=== PATIENT | female | born 1935 | race Caucasian/White ===

== ENCOUNTER 2020-05-31 07:54 | Emergency (ER) | payer MEDICARE, OTHER ==
[~2020-05-31] VITALS: Ht 165.1 cm; Wt 81.4 kg
--- NOTE | 2020-05-31 08:16 | NUR ---
PT TOOK ALL MEDICATION 45 MIN BEFORE ARRIVAL INCLUDING HTN MEDICATION AND XARELTO.
[2020-05-31] MEDS ORDERED: normal saline 1000ml 1,000 ML IV ONE (08:25)
[2020-05-31] MEDS ORDERED: acetaminophen 325mg tablet PO ONE (08:25)
[2020-05-31 09:05] LABS: BASOPHILS # (AUTO) 0.1 X10'3 (0-0.2); BASOPHILS % (AUTO) 0.6 % (0-1); EOSINOPHILS # (AUTO) 0.2 X10'3 (0-0.9); EOSINOPHILS % (AUTO) 1.7 % (0-6); HEMATOCRIT 30.9 % (35.0-45.0); HEMOGLOBIN 10.5 g/dl (12.0-16.0); LYMPHOCYTES # (AUTO) 1.3 X10'3 (1.1-4.8); LYMPHOCYTES % (AUTO) 13.9 % (21-51); MEAN CORPUSCULAR HGB CONC 33.9 g/dL (33.0-36.5); MEAN CORPUSCULAR VOLUME 100.5 FL (78-98); MEAN PLATELET VOLUME 7.6 FL (7.4-10.4); MONOCYTES # (AUTO) 0.8 X10'3 (0-0.9); MONOCYTES % (AUTO) 8.5 % (2-12); NEUTROPHILS # (AUTO) 6.8 X10'3 (1.8-7.7); NEUTROPHILS % (AUTO) 75.3 % (42-75); PLATELET COUNT 198 X10'3 (140-440); RED BLOOD COUNT 3.08 X10'6 (4.20-5.60); RED CELL DISTRIBUTION WIDTH 12.4 % (11.5-14.5); WHITE BLOOD COUNT 9.1 X10'3 (4.5-11.0)
[2020-05-31 09:21] LABS: CLARITY,URINE CLOUDY (Clear); COLOR,URINE YELLOW (Yellow); GLUCOSE, URINE NEGATIVE (Neg); KETONES,URINE TRACE mg/dl (Neg); LEUKOCYTE ESTERASE ,URINE NEGATIVE (Neg); NITRITES, URINE NEGATIVE (Neg); OCCULT BLOOD,URINE NEGATIVE (Neg); PROTEIN,URINE NEGATIVE (Neg); UROBILINOGEN,URINE 0.2 E.U/dL (0.2-1.0)
[2020-05-31 09:22] LABS: UA COLLECTION TYPE CLN CATCH MIDSTREAM
[2020-05-31 09:29] LABS: ALANINE AMINOTRANSFERASE 21 U/L (12-78); ALBUMIN 3.4 G/DL (3.4-5.0); ALBUMIN/GLOBULIN RATIO 1.1 (1.1-1.5); ALKALINE PHOSPHATASE 67 IU/L (46-116); ANION GAP 8 (8-16); ASPARTATE AMINO TRANSFERASE 15 U/L (10-37); BILIRUBIN,TOTAL 0.5 MG/DL (0.1-1.0); BLOOD UREA NITROGEN 25 MG/DL (7-18); BUN/CREATININE RATIO 17.1 (6.6-38.0); CALCIUM 8.8 MG/DL (8.5-10.1); CHLORIDE 104 MMOL/L (99-107); CREATINE KINASE 86 U/L (26-192); CREATININE 1.46 MG/DL (0.40-0.90); GLUCOSE 134 MG/DL (70-104); POTASSIUM 4.3 MMOL/L (3.5-5.1); SODIUM 137 MMOL/L (135-145); TOTAL CARBON DIOXIDE 24.7 MMOL/L (24-32); TOTAL PROTEIN 6.4 G/DL (6.4-8.2); TROPONIN I < 0.04 NG/ML (0.0-0.05); eGFR 34 ML/MIN
[2020-05-31 09:31] LABS: SQUAMOUS EPITHELIAL CELL,UR MANY /LPF (FEW)
[2020-05-31 09:32] LABS: CELLULAR CAST 0-4 /LPF (NEGATIVE)
--- NOTE | 2020-05-31 09:32 | NUR ---
PATIENT TO CT. Addendum: 05/31/20 at 0934 by KRISTI INCORRECT ENTRY.
[2020-05-31 09:33] LABS: BACTERIA,URINE FEW /HPF (Neg); RBC,URINE 0-2 /HPF (0-2); TRANSITIONAL EPI CELLS,URINE MODERATE /HPF
[2020-05-31] MEDS ORDERED: BENA20TA82 PO (09:51)
[2020-05-31] MEDS ORDERED: RIVA20TA PO (09:51)
[2020-05-31] MEDS ORDERED: AMIO200T62 PO (09:51)
[2020-05-31] MEDS ORDERED: CARV-50 PO (09:51)
[2020-05-31] MEDS ORDERED: SIMV-42 PO (09:51)
[2020-05-31] MEDS ORDERED: TRAZ150T78 PO (09:51)
[2020-05-31] MEDS ORDERED: TRAM50TA2 PO (09:51)
[2020-05-31] MEDS ORDERED: FURO-150 PO (09:51)
[2020-05-31] MEDS ORDERED: POTA8TAB3 PO (09:51)
[2020-05-31 10:31] VITALS: BP 157/75
[2020-05-31] MEDS ORDERED: ACET-812 PO (11:12)
== END 2020-05-31 11:31 | disposition home or self-care (01) ==
LOC: ER 07:54
DX: S40.022A Contusion of left upper arm, initial encounter (principal); R07.81 Pleurodynia; I10 Essential (primary) hypertension; Z79.899 Other long term (current) drug therapy; W01.198A Fall on same level from slipping, tripping and stumbling with subsequent striking against other object, initial encounter; Y93.89 Activity, other specified; Y92.091 Bathroom in other non-institutional residence as the place of occurrence of the external cause; Y99.9 Unspecified external cause status
CPT/HCPCS: 36415; 71045; 73200; 80053; 81001; 82550; 84484; 85025; 85610; 93005; 99285; J7030

== ENCOUNTER 2020-08-31 00:39 | Inpatient (IN) | payer MEDICARE, OTHER ==
[~2020-08-31] VITALS: Ht 165.1 cm; Wt 81.0 kg
[~2020-08-31 00:39] MED LIST: AMIO200T62 PO; BENA20TA82 PO; CARV-50 PO; FURO-150 PO; POTA8TAB3 PO; RIVA20TA PO; SIMV-42 PO; TRAM50TA2 PO; TRAZ150T78 PO
[2020-08-31] MEDS ORDERED: normal saline 1000ML IV soln IVB ONE (01:05)
[2020-08-31 01:13] LABS: BASOPHILS # (AUTO) 0.1 X10'3 (0-0.2); BASOPHILS % (AUTO) 0.8 % (0-1); EOSINOPHILS # (AUTO) 0.1 X10'3 (0-0.9); EOSINOPHILS % (AUTO) 0.9 % (0-6); HEMATOCRIT 41.4 % (35.0-45.0); HEMOGLOBIN 13.8 g/dl (12.0-16.0); LYMPHOCYTES # (AUTO) 2.6 X10'3 (1.1-4.8); LYMPHOCYTES % (AUTO) 22.6 % (21-51); MEAN CORPUSCULAR HEMOGLOBIN 33.3 PG (27.0-31.0); MEAN CORPUSCULAR HGB CONC 33.4 g/dL (33.0-36.5); MEAN CORPUSCULAR VOLUME 99.8 FL (78-98); MEAN PLATELET VOLUME 7.6 FL (7.4-10.4); MONOCYTES # (AUTO) 0.8 X10'3 (0-0.9); MONOCYTES % (AUTO) 6.9 % (2-12); NEUTROPHILS % (AUTO) 68.8 % (42-75); PLATELET COUNT 326 X10'3 (140-440); RED BLOOD COUNT 4.15 X10'6 (4.20-5.60); RED CELL DISTRIBUTION WIDTH 12.7 % (11.5-14.5); WHITE BLOOD COUNT 11.6 X10'3 (4.5-11.0)
[2020-08-31 01:24] LABS: ALANINE AMINOTRANSFERASE 21 U/L (12-78); ALBUMIN/GLOBULIN RATIO 1.1 (1.1-1.5); ALKALINE PHOSPHATASE 87 IU/L (46-116); ANION GAP 12 (8-16); ASPARTATE AMINO TRANSFERASE 30 U/L (10-37); BILIRUBIN,TOTAL 0.7 MG/DL (0.1-1.0); BLOOD UREA NITROGEN 25 MG/DL (7-18); BUN/CREATININE RATIO 18.9 (6.6-38.0); CALCIUM 9.6 MG/DL (8.5-10.1); CHLORIDE 99 MMOL/L (99-107); CREATININE 1.32 MG/DL (0.40-0.90); GLUCOSE 153 MG/DL (70-104); SODIUM 136 MMOL/L (135-145); TOTAL CARBON DIOXIDE 24.6 MMOL/L (24-32); TOTAL PROTEIN 7.6 G/DL (6.4-8.2); eGFR 38 ML/MIN
[2020-08-31 01:47] LABS: CLARITY,URINE SLIGHTLY CLOUDY (Clear); COLOR,URINE YELLOW (Yellow); GLUCOSE, URINE NEGATIVE (Neg); KETONES,URINE TRACE mg/dl (Neg); LEUKOCYTE ESTERASE ,URINE NEGATIVE (Neg); NITRITES, URINE NEGATIVE (Neg); OCCULT BLOOD,URINE TRACE-LYSED (Neg); PROTEIN,URINE 100 mg/dl (Neg)
--- NOTE | 2020-08-31 01:48 | NUR ---
returned from ct. hr 125. piv in place, labs drawn and straight cathed. pt with no pain.
[2020-08-31 01:51] LABS: UA COLLECTION TYPE STRAIGHT CATH
[2020-08-31 01:53] LABS: BACTERIA,URINE 4+ /HPF (Neg); RBC,URINE 0-2 /HPF (0-2); SQUAMOUS EPITHELIAL CELL,UR FEW /LPF (FEW)
--- NOTE | 2020-08-31 02:07 | NUR ---
PT CONNER, DR. LOUIS NOTIFIED, WILL ORDER ANTIEMETIC
[2020-08-31] MEDS ORDERED: ondansetron/PF 4mg/2ml inj IV ONE (02:15)
[2020-08-31] MEDS ORDERED: LEVO125T PO (02:31)
[2020-08-31] MEDS ORDERED: BACL-11 PO (02:33)
[2020-08-31] MEDS ORDERED: CefTRIAXone/D5W-Rocephin 1gm 50 ML IV ONE (02:35)
--- NOTE | 2020-08-31 02:36 | NUR ---
DR. DICKINSON PAGED FOR ADMISSION. MED REC COMPLETED. PT GIVEN ZOFRAN . HR 130. DR. LOUIS REPORTS SHE WILL AWAITING DR. QUEVEDO DECISION ON HOW TO CONTROL PTS RATE. PT REPORTS D/T FEELING BAD AND SICK, SHE HAS MISSED HER MEDS FOR THE PAST 24 + HRS. PTS SON (WHO DROPPED HER OFF) JORGE QUISPEAlexandra, .
[2020-08-31] MEDS ORDERED: carvedilol 6.25mg tablet PO STA (02:38)
--- NOTE | 2020-08-31 02:40 | NUR ---
DR. DICKINSON AT BEDSIDE FOR ADMISSION.
[2020-08-31] MEDS ORDERED: acetaminophen 325mg tablet PO PRN (03:05)
[2020-08-31] MEDS ORDERED: mag hydrox/Alum hydrox/simeth 30ml oral suspension PO PRN (03:05)
[2020-08-31] MEDS ORDERED: ondansetron/PF 4mg/2ml inj IV PRN (03:05)
[2020-08-31] MEDS ORDERED: magnesium hydroxide 30ml (MOM) UD suspension PO PRN (03:05)
--- NOTE | 2020-08-31 04:17 | NUR ---
REPORT TO JUNIOR RAMIREZ RN, PCU. IPA [id number]. HR NOW 66 AND NSR. PT REPORTS SHE IS FEELING BETTER.
--- NOTE | 2020-08-31 04:50 | NUR ---
Patient was transported by gurney to the third floor from the ER. Patient was able to reposition self from ER [facility] to [facility] in room. She stated that she is normally independent with her cane but has been feeling weak lately. She was stable at time of transfer.
--- NOTE | 2020-08-31 05:25 | NUR ---
Patient has elevated blood pressure of 184/78. Called Dr. Pascual to inform. He said to give her AM Coreg early. Had to enter as a one time order to pull from the [employer].
[2020-08-31] MEDS ORDERED: carvedilol 6.25mg tablet PO ONE (05:40)
[2020-08-31 06:00] VITALS: BP 169/66
--- NOTE | 2020-08-31 06:33 | NUR ---
Problems reprioritized. Patient report given, questions answered & plan of care reviewed with Octavia RN. Patient was resting comfortably during report and no acute distress was noted.
--- NOTE | 2020-08-31 06:45 | NUR ---
Patient in room PCU 3027. I have received report from Tess and had the opportunity to ask questions and assume patient care.
[2020-08-31] MEDS: amiodarone 100mg tablet PO SCH (07:50)
[2020-08-31] MEDS: furosemide 20MG tablet PO SCH (07:52)
[2020-08-31] MEDS: levoTHYROXINE 125mcg tablet PO SCH (07:53)
[2020-08-31] MEDS: atorvastatin 10mg tablet PO SCH (07:53)
[2020-08-31] MEDS: lisinopril 20mg tablet PO SCH (07:55)
[2020-08-31] MEDS: potassium chloride 8mEq ER tablet PO SCH (07:56)
[2020-08-31] MEDS ORDERED: carvedilol 6.25mg tablet PO SCH (08:00)
[2020-08-31] MEDS ORDERED: diltiazem 5mg/ml 5ml inj. IV ONE (08:55)
[2020-08-31] MEDS: CefTRIAXone/D5W-Rocephin 1gm 50 ML IV SCH (09:25)
[2020-08-31] MEDS: normal saline 1000ml 1,000 ML IV SCH ×3 (09:25→21:18)
[2020-08-31] MEDS ORDERED: magnesium Cl slow-release 64mg tablet PO PRN (09:50)
[2020-08-31] MEDS ORDERED: magnesium 4gm in 100ml NS 100 ML IV PRN (09:50)
[2020-08-31] MEDS ORDERED: potassium Cl 20 mEq SR tablet PO PRN ×2 (09:50)
[2020-08-31] MEDS ORDERED: potassium CL 10mEq/100ml bag 100 ML IV PRN (09:50)
--- NOTE | 2020-08-31 10:15 | NUR ---
PAGER ID: [phone] MESSAGE: [id number] Ana M Sheehan Troponin is 0.08 previously was 0.04. Pt denies chest pain. Thank you. Linnette [phone]
[2020-08-31 11:00] VITALS: BP 143/91
--- NOTE | 2020-08-31 11:41 | NUR ---
Pt has converted to sinus rhythm from afib/aflutter, dr. izaguirre aware, no new orders.
[2020-08-31 15:00] VITALS: BP 148/74
--- NOTE | 2020-08-31 17:00 | NUR ---
PAGER ID: [phone] MESSAGE: [id number] Ana M Sheehan Pt converted back to Afib from sinus rhythm in the 90s-110s. Pt is asymptomatic. Do you want to give the pm scheduled coreg 25mg early? Thank you. Linnette [phone]
[2020-08-31] MEDS: rivaroxaban 20mg tablet PO SCH (17:29)
--- NOTE | 2020-08-31 17:52 | NUR ---
[facility] documentation: I have reviewed and agree with all interventions, assessments performed and documented by Linnette LAND.
--- NOTE | 2020-08-31 18:26 | NUR ---
Problems reprioritized. Patient report given, questions answered & plan of care reviewed with EMERY Antonio.
--- NOTE | 2020-08-31 18:30 | NUR ---
Patient in room PCU 3022. I have received report from BERKLEY LAND and had the opportunity to ask questions and assume patient care.
[2020-08-31 19:00] VITALS: BP 167/89
[2020-08-31] MEDS: K and/or MAG REPLACEMENT MC SCH (20:00)
[2020-08-31] MEDS: carVEDilol 12.5mg tablet PO SCH (20:55)
[2020-08-31 23:00] VITALS: BP 132/75
[2020-09-01] VITALS (7 sets, daily range): BP systolic 144–195; BP diastolic 62–98
[2020-09-01] MEDS: normal saline 1000ml 1,000 ML IV SCH ×2 (01:18→17:55)
[2020-09-01 06:03] LABS: ALANINE AMINOTRANSFERASE 16 U/L (12-78); ALBUMIN 2.9 G/DL (3.4-5.0); ALKALINE PHOSPHATASE 65 IU/L (46-116); ANION GAP 8 (8-16); ASPARTATE AMINO TRANSFERASE 14 U/L (10-37); BILIRUBIN,TOTAL 0.5 MG/DL (0.1-1.0); BLOOD UREA NITROGEN 18 MG/DL (7-18); BUN/CREATININE RATIO 15.1 (6.6-38.0); CALCIUM 8.5 MG/DL (8.5-10.1); CHLORIDE 101 MMOL/L (99-107); CREATININE 1.19 MG/DL (0.40-0.90); GLUCOSE 101 MG/DL (70-104); MAGNESIUM 1.7 MG/DL (1.5-2.4); PHOSPHORUS 3.1 MG/DL (2.3-4.5); POTASSIUM 3.7 MMOL/L (3.5-5.1); SODIUM 134 MMOL/L (135-145); TOTAL CARBON DIOXIDE 25.1 MMOL/L (24-32); TOTAL PROTEIN 5.8 G/DL (6.4-8.2); eGFR 43 ML/MIN
[2020-09-01 06:04] LABS: BASOPHILS # (AUTO) 0.1 X10'3 (0-0.2); BASOPHILS % (AUTO) 0.6 % (0-1); EOSINOPHILS # (AUTO) 0.2 X10'3 (0-0.9); EOSINOPHILS % (AUTO) 2.2 % (0-6); HEMATOCRIT 33.7 % (35.0-45.0); HEMOGLOBIN 11.4 g/dl (12.0-16.0); LYMPHOCYTES # (AUTO) 1.9 X10'3 (1.1-4.8); LYMPHOCYTES % (AUTO) 20.5 % (21-51); MEAN CORPUSCULAR HEMOGLOBIN 33.8 PG (27.0-31.0); MEAN CORPUSCULAR HGB CONC 33.8 g/dL (33.0-36.5); MEAN PLATELET VOLUME 7.8 FL (7.4-10.4); MONOCYTES # (AUTO) 0.9 X10'3 (0-0.9); MONOCYTES % (AUTO) 10.1 % (2-12); NEUTROPHILS # (AUTO) 6.2 X10'3 (1.8-7.7); NEUTROPHILS % (AUTO) 66.6 % (42-75); PLATELET COUNT 211 X10'3 (140-440); RED BLOOD COUNT 3.37 X10'6 (4.20-5.60); RED CELL DISTRIBUTION WIDTH 12.5 % (11.5-14.5); WHITE BLOOD COUNT 9.3 X10'3 (4.5-11.0)
--- NOTE | 2020-09-01 06:12 | NUR ---
Patient in room PCU 3027. I have received report from EMERY Antonio and had the opportunity to ask questions and assume patient care.
--- NOTE | 2020-09-01 06:12 | NUR ---
Problems reprioritized. Patient report given, questions answered & plan of care reviewed with Katja LAND.
[2020-09-01] MEDS: K and/or MAG REPLACEMENT MC SCH ×2 (08:00→20:00)
[2020-09-01] MEDS: furosemide 20MG tablet PO SCH (09:23)
[2020-09-01] MEDS: atorvastatin 10mg tablet PO SCH (09:23)
[2020-09-01] MEDS: amiodarone 100mg tablet PO SCH (09:23)
[2020-09-01] MEDS: carVEDilol 12.5mg tablet PO SCH ×2 (09:23→19:59)
[2020-09-01] MEDS: levoTHYROXINE 125mcg tablet PO SCH (09:23)
[2020-09-01] MEDS: lisinopril 20mg tablet PO SCH (09:25)
[2020-09-01] MEDS: potassium chloride 8mEq ER tablet PO SCH (09:25)
[2020-09-01] MEDS: CefTRIAXone/D5W-Rocephin 1gm 50 ML IV SCH (09:27)
[2020-09-01] MEDS: rivaroxaban 20mg tablet PO SCH (17:13)
--- NOTE | 2020-09-01 18:56 | NUR ---
Problems reprioritized. Patient report given, questions answered & plan of care reviewed with EMERY Baig.
[2020-09-01] MEDS: traZODone 50mg tablet PO PRN (19:59)
[2020-09-02 05:29] LABS: BASOPHILS % (AUTO) 0.4 % (0-1); EOSINOPHILS # (AUTO) 0.2 X10'3 (0-0.9); EOSINOPHILS % (AUTO) 2.5 % (0-6); HEMATOCRIT 35.5 % (35.0-45.0); HEMOGLOBIN 11.9 g/dl (12.0-16.0); LYMPHOCYTES # (AUTO) 1.5 X10'3 (1.1-4.8); LYMPHOCYTES % (AUTO) 15.9 % (21-51); MEAN CORPUSCULAR HEMOGLOBIN 33.4 PG (27.0-31.0); MEAN CORPUSCULAR HGB CONC 33.6 g/dL (33.0-36.5); MEAN CORPUSCULAR VOLUME 99.4 FL (78-98); MONOCYTES # (AUTO) 0.9 X10'3 (0-0.9); MONOCYTES % (AUTO) 10.1 % (2-12); NEUTROPHILS # (AUTO) 6.6 X10'3 (1.8-7.7); NEUTROPHILS % (AUTO) 71.1 % (42-75); PLATELET COUNT 197 X10'3 (140-440); RED BLOOD COUNT 3.57 X10'6 (4.20-5.60); RED CELL DISTRIBUTION WIDTH 12.5 % (11.5-14.5); WHITE BLOOD COUNT 9.3 X10'3 (4.5-11.0)
[2020-09-02 05:33] LABS: ALANINE AMINOTRANSFERASE 16 U/L (12-78); ALBUMIN 2.8 G/DL (3.4-5.0); ALBUMIN/GLOBULIN RATIO 0.9 (1.1-1.5); ALKALINE PHOSPHATASE 71 IU/L (46-116); ANION GAP 3 (8-16); ASPARTATE AMINO TRANSFERASE 12 U/L (10-37); BILIRUBIN,TOTAL 0.4 MG/DL (0.1-1.0); BLOOD UREA NITROGEN 14 MG/DL (7-18); BUN/CREATININE RATIO 13.2 (6.6-38.0); CALCIUM 8.6 MG/DL (8.5-10.1); CHLORIDE 103 MMOL/L (99-107); CREATININE 1.06 MG/DL (0.40-0.90); GLUCOSE 100 MG/DL (70-104); MAGNESIUM 1.6 MG/DL (1.5-2.4); POTASSIUM 3.7 MMOL/L (3.5-5.1); SODIUM 133 MMOL/L (135-145); TOTAL CARBON DIOXIDE 26.9 MMOL/L (24-32); TOTAL PROTEIN 5.8 G/DL (6.4-8.2); eGFR 49 ML/MIN
--- NOTE | 2020-09-02 06:15 | NUR ---
Patient in room PCU 3015. I have received report from DOROTHY LAND and had the opportunity to ask questions and assume patient care.
--- NOTE | 2020-09-02 06:30 | NUR ---
Patient in room PCU 3015. I have received report from EMERY Mahajan and had the opportunity to ask questions and assume patient care. Patient is awake in bed and in no acute distress.
[2020-09-02 07:00] VITALS: BP 111/69
[2020-09-02] MEDS: K and/or MAG REPLACEMENT MC SCH (08:00)
[2020-09-02] MEDS: CefTRIAXone/D5W-Rocephin 1gm 50 ML IV SCH (08:06)
[2020-09-02] MEDS: furosemide 20MG tablet PO SCH (08:13)
[2020-09-02] MEDS: levoTHYROXINE 75mcg tablet PO SCH (08:13)
[2020-09-02] MEDS: carVEDilol 12.5mg tablet PO SCH ×2 (08:14→22:47)
[2020-09-02] MEDS: potassium chloride 8mEq ER tablet PO SCH (08:14)
[2020-09-02] MEDS: atorvastatin 10mg tablet PO SCH (08:14)
[2020-09-02] MEDS: amiodarone 100mg tablet PO SCH (08:14)
[2020-09-02] MEDS: lisinopril 20mg tablet PO SCH (08:14)
[2020-09-02] MEDS: normal saline 1000ml 1,000 ML IV SCH (08:22)
--- NOTE | 2020-09-02 08:22 | NUR ---
NS ADMINISTERED WOULD NOT SCAN, 1000ML BAG 75ML/HR,
[2020-09-02 11:00] VITALS: BP 157/65
--- NOTE | 2020-09-02 11:07 | NUR ---
PER DR. WAKEFIELD NS DECREASED FROM 75ML/HR TO 50ML/HR
[2020-09-02] MEDS ORDERED: VIT1CAPS46 PO (11:39)
[2020-09-02] MEDS ORDERED: BIMA2.5D EACHEYE (11:39)
[2020-09-02] MEDS ORDERED: ondansetron 4mg rapidly disintigrating tab PO PRN (12:10)
[2020-09-02] MEDS: lactose-reduced food (Ensure Enlive) - 237ml bottle PO SCH (13:00)
[2020-09-02 15:41] VITALS: BP 139/68
[2020-09-02] MEDS: rivaroxaban 20mg tablet PO SCH (17:41)
--- NOTE | 2020-09-02 18:16 | NUR ---
[facility] documentation: I have reviewed and agree with all interventions, assessments performed and documented by EMERY Chaparro. [facility] Medication Administration: For this medication-pass time frame, all medication were reviewed, dispensed, administered and documented per hospital policy by EMERY Chaparro.
--- NOTE | 2020-09-02 18:22 | NUR ---
Problems reprioritized. Patient report given, questions answered & plan of care reviewed with EMERY CARTER.
[2020-09-02] MEDS: beta-carotene(A) w/C & E + minerals tab PO SCH (20:00)
[2020-09-02] MEDS ORDERED: latanoprost 0.005% 2.5ml ophthalmic drops EACHEYE SCH (21:00)
[2020-09-02] MEDS: traZODone 50mg tablet PO PRN (22:47)
[2020-09-03 06:00] VITALS: BP 159/89
[2020-09-03 06:08] LABS: BASOPHILS # (AUTO) 0.1 X10'3 (0-0.2); BASOPHILS % (AUTO) 0.7 % (0-1); EOSINOPHILS # (AUTO) 0.3 X10'3 (0-0.9); EOSINOPHILS % (AUTO) 3.9 % (0-6); HEMATOCRIT 35.5 % (35.0-45.0); HEMOGLOBIN 11.8 g/dl (12.0-16.0); LYMPHOCYTES # (AUTO) 1.7 X10'3 (1.1-4.8); LYMPHOCYTES % (AUTO) 21.7 % (21-51); MEAN CORPUSCULAR HEMOGLOBIN 33.3 PG (27.0-31.0); MEAN CORPUSCULAR HGB CONC 33.2 g/dL (33.0-36.5); MEAN CORPUSCULAR VOLUME 100.1 FL (78-98); MEAN PLATELET VOLUME 8.3 FL (7.4-10.4); MONOCYTES # (AUTO) 0.8 X10'3 (0-0.9); NEUTROPHILS # (AUTO) 5.1 X10'3 (1.8-7.7); NEUTROPHILS % (AUTO) 63.7 % (42-75); PLATELET COUNT 216 X10'3 (140-440); RED BLOOD COUNT 3.55 X10'6 (4.20-5.60); RED CELL DISTRIBUTION WIDTH 12.6 % (11.5-14.5); WHITE BLOOD COUNT 8.1 X10'3 (4.5-11.0)
[2020-09-03 06:25] LABS: ALANINE AMINOTRANSFERASE 18 U/L (12-78); ALBUMIN 2.9 G/DL (3.4-5.0); ALBUMIN/GLOBULIN RATIO 0.9 (1.1-1.5); ALKALINE PHOSPHATASE 71 IU/L (46-116); ANION GAP 8 (8-16); ASPARTATE AMINO TRANSFERASE 16 U/L (10-37); BILIRUBIN,TOTAL 0.4 MG/DL (0.1-1.0); BLOOD UREA NITROGEN 14 MG/DL (7-18); BUN/CREATININE RATIO 13.6 (6.6-38.0); CALCIUM 9.1 MG/DL (8.5-10.1); CHLORIDE 101 MMOL/L (99-107); CREATININE 1.03 MG/DL (0.40-0.90); GLUCOSE 103 MG/DL (70-104); MAGNESIUM 1.9 MG/DL (1.5-2.4); POTASSIUM 3.9 MMOL/L (3.5-5.1); SODIUM 135 MMOL/L (135-145); TOTAL CARBON DIOXIDE 26.2 MMOL/L (24-32); TOTAL PROTEIN 6.2 G/DL (6.4-8.2); eGFR 51 ML/MIN
--- NOTE | 2020-09-03 06:32 | NUR ---
Patient in room PCU 3015. I have received report from Ana Dotson RN and had the opportunity to ask questions and assume patient care.
[2020-09-03] MEDS: lactose-reduced food (Ensure Enlive) - 237ml bottle PO SCH ×2 (06:53→07:21)
[2020-09-03] MEDS: K and/or MAG REPLACEMENT MC SCH ×2 (06:54→07:21)
[2020-09-03] MEDS: CefTRIAXone/D5W-Rocephin 1gm 50 ML IV SCH (07:19)
[2020-09-03] MEDS: beta-carotene(A) w/C & E + minerals tab PO SCH (07:20)
[2020-09-03] MEDS: amiodarone 100mg tablet PO SCH (07:20)
[2020-09-03] MEDS: lisinopril 20mg tablet PO SCH (07:20)
[2020-09-03] MEDS: atorvastatin 10mg tablet PO SCH (07:20)
[2020-09-03] MEDS: potassium chloride 8mEq ER tablet PO SCH (07:20)
[2020-09-03] MEDS: furosemide 20MG tablet PO SCH (07:20)
[2020-09-03] MEDS: levoTHYROXINE 75mcg tablet PO SCH (07:20)
[2020-09-03] MEDS: carVEDilol 12.5mg tablet PO SCH (07:21)
[2020-09-03] MEDS ORDERED: lactobacillus rhamnosus 10,000 MMU CELLS/CAPSULE PO SCH (08:00)
[2020-09-03 11:00] VITALS: BP 165/58
[2020-09-03] MEDS ORDERED: CEFD300C3 PO (11:48)
[2020-09-03] MEDS ORDERED: LEVO75TA7 PO (11:48)
[2020-09-03] MEDS ORDERED: CARV-50 PO (11:48)
[2020-09-03] MEDS ORDERED: LACT1CAP26 PO (11:48)
[2020-09-03] MEDS: normal saline 1000ml 1,000 ML IV SCH (12:37)
--- NOTE | 2020-09-03 12:51 | NUR ---
Stable for discharge per MD order, all discharge instructions reviewed with the patient and all questions answered, educated on f/u needs, new prescriptions sent to [facility] pharmacy on [address] [facility], PIV and tele monitor discontinued, all belongings collected and sent with the patient, left the unit at 1251 in wheelchair with nurses aide to private vehicle.
== END 2020-09-03 12:51 | disposition home health service (06) | DRG 91 ==
LOC: ER 00:40 → ED HOLD 03:03 → PCU 3S 04:15 → OBSVTOIN 11:35 → PCU 3S 09-02 00:24
PROVIDERS: ADMIT Internal Medicine; ATTEND Family Medicine
DX: G92 Toxic encephalopathy (principal); I21.A1 Myocardial infarction type 2; N39.0 Urinary tract infection, site not specified; E87.1 Hypo-osmolality and hyponatremia; E86.0 Dehydration; E03.9 Hypothyroidism, unspecified; E78.5 Hyperlipidemia, unspecified; I11.0 Hypertensive heart disease with heart failure; I48.91 Unspecified atrial fibrillation; T42.8X5A Adverse effect of antiparkinsonism drugs and other central muscle-tone depressants, initial encounter; I50.9 Heart failure, unspecified; Z79.01 Long term (current) use of anticoagulants; Z79.890 Hormone replacement therapy; Z79.899 Other long term (current) drug therapy; Y92.89 Other specified places as the place of occurrence of the external cause
CPT/HCPCS: 36415; 70450; 71045; 80053; 81001; 83735; 83880; 84100; 84439; 84443; 84484; 85025; 87081; 87088; 93005; 97161; 97530; 99285; G0378; J0696; J2405; J3490; J7030

== ENCOUNTER 2020-09-06 18:11 | Emergency (ER) | payer MEDICARE, OTHER ==
[~2020-09-06] VITALS: Ht 165.1 cm; Wt 80.0 kg
[~2020-09-06 18:11] MED LIST changes: +BIMA2.5D EACHEYE; +CEFD300C3 PO; +LACT1CAP26 PO; +LEVO75TA7 PO; +VIT1CAPS46 PO
[2020-09-06] MEDS ORDERED: ondansetron 4mg rapidly disintigrating tab PO ONE (19:50)
[2020-09-06] MEDS ORDERED: HYDROcodone/acetaminophen 5mg/325mg tablet PO ONE ×2 (19:50→19:55)
[2020-09-06] MEDS ORDERED: ONDA4TAB6 PO (19:57)
[2020-09-06] MEDS ORDERED: HYDR-3965 PO (19:57)
[2020-09-06 21:27] VITALS: BP 157/77
== END 2020-09-06 20:50 | disposition home or self-care (01) ==
LOC: ER 18:12
DX: M25.551 Pain in right hip (principal); R11.0 Nausea; I10 Essential (primary) hypertension; Z79.2 Long term (current) use of antibiotics; Z79.899 Other long term (current) drug therapy
CPT/HCPCS: 99284

== ENCOUNTER 2020-09-20 11:47 | Emergency (ER) | payer MEDICARE, OTHER ==
[~2020-09-20] VITALS: Ht 165.1 cm; Wt 79.1 kg
[~2020-09-20 11:47] MED LIST changes: +HYDR-3965 PO; +ONDA4TAB6 PO
[2020-09-20 12:00] VITALS: BP 198/83
[2020-09-20] MEDS ORDERED: ondansetron 4mg rapidly disintigrating tab PO ONE (12:45)
[2020-09-20] MEDS ORDERED: HYDROcodone/acetaminophen 5mg/325mg tablet PO ONE (12:45)
[2020-09-20 13:13] LABS: BASOPHILS # (AUTO) 0.1 X10'3 (0-0.2); EOSINOPHILS # (AUTO) 0.1 X10'3 (0-0.9); HEMATOCRIT 38.6 % (35.0-45.0); HEMOGLOBIN 12.9 g/dl (12.0-16.0); LYMPHOCYTES # (AUTO) 1.5 X10'3 (1.1-4.8); LYMPHOCYTES % (AUTO) 18.8 % (21-51); MEAN CORPUSCULAR HEMOGLOBIN 32.7 PG (27.0-31.0); MEAN CORPUSCULAR HGB CONC 33.4 g/dL (33.0-36.5); MEAN CORPUSCULAR VOLUME 97.8 FL (78-98); MEAN PLATELET VOLUME 6.7 FL (7.4-10.4); MONOCYTES # (AUTO) 0.6 X10'3 (0-0.9); MONOCYTES % (AUTO) 7.2 % (2-12); NEUTROPHILS # (AUTO) 5.8 X10'3 (1.8-7.7); PLATELET COUNT 358 X10'3 (140-440); RED BLOOD COUNT 3.95 X10'6 (4.20-5.60); RED CELL DISTRIBUTION WIDTH 12.1 % (11.5-14.5); WHITE BLOOD COUNT 8.1 X10'3 (4.5-11.0)
[2020-09-20 13:15] LABS: CLARITY,URINE CLOUDY (Clear); COLOR,URINE YELLOW (Yellow); GLUCOSE, URINE NEGATIVE (Neg); KETONES,URINE NEGATIVE (Neg); LEUKOCYTE ESTERASE ,URINE NEGATIVE (Neg); NITRITES, URINE NEGATIVE (Neg); OCCULT BLOOD,URINE NEGATIVE (Neg); PH,URINE 7.5 (4.8-8.0); PROTEIN,URINE 30 mg/dl (Neg); UROBILINOGEN,URINE 0.2 E.U/dL (0.2-1.0)
[2020-09-20 13:23] LABS: ALBUMIN 3.8 G/DL (3.4-5.0); ANION GAP 7 (8-16); BLOOD UREA NITROGEN 13 MG/DL (7-18); BUN/CREATININE RATIO 10.1 (6.6-38.0); CALCIUM 9.5 MG/DL (8.5-10.1); CHLORIDE 100 MMOL/L (99-107); CREATININE 1.29 MG/DL (0.40-0.90); GLUCOSE 121 MG/DL (70-104); POTASSIUM 3.7 MMOL/L (3.5-5.1); SODIUM 137 MMOL/L (135-145); TOTAL CARBON DIOXIDE 29.9 MMOL/L (24-32); eGFR 39 ML/MIN
[2020-09-20 13:24] LABS: UA COLLECTION TYPE CLN CATCH MIDSTREAM
[2020-09-20 13:26] LABS: MUCUS STRANDS FEW /LPF (Neg); RBC,URINE NONE SEEN /HPF (0-2); SQUAMOUS EPITHELIAL CELL,UR MODERATE /LPF (FEW); TRANSITIONAL EPI CELLS,URINE FEW /HPF; WBC,URINE 0-4 /HPF (0-4)
[2020-09-20 13:27] LABS: AMORPHOUS PHOSPHATES 3+; BACTERIA,URINE FEW /HPF (Neg); HYALINE CASTS 0-3 /LPF (NEGATIVE)
[2020-09-20] MEDS ORDERED: ONDA4TAB12 PO (14:16)
== END 2020-09-20 14:48 | disposition home or self-care (01) ==
LOC: ER 11:48
DX: M25.551 Pain in right hip (principal); R94.31 Abnormal electrocardiogram [ECG] [EKG]; I10 Essential (primary) hypertension; Z79.899 Other long term (current) drug therapy
CPT/HCPCS: 36415; 80048; 81001; 84484; 85025; 93005; 99284

== ENCOUNTER 2020-09-22 20:13 | Emergency (ER) | payer MEDICARE, OTHER ==
[~2020-09-22] VITALS: Ht 165.1 cm; Wt 78.2 kg
[~2020-09-22 20:13] MED LIST changes: +ONDA4TAB12 PO
[2020-09-22] MEDS ORDERED: TRAM50TA2 PO (20:45)
[2020-09-22] MEDS ORDERED: ondansetron 4mg rapidly disintigrating tab PO ONE (20:45)
[2020-09-22] MEDS ORDERED: HYDROcodone/acetaminophen 5mg/325mg tablet PO ONE (20:45)
[2020-09-22 20:54] VITALS: BP 148/88
== END 2020-09-22 20:55 | disposition home or self-care (01) ==
LOC: ER 20:15
DX: M25.551 Pain in right hip (principal); I10 Essential (primary) hypertension; Z79.2 Long term (current) use of antibiotics; Z79.899 Other long term (current) drug therapy
CPT/HCPCS: 99283

== ENCOUNTER 2020-09-28 19:36 | Emergency (ER) | payer MEDICARE, OTHER ==
[~2020-09-28] VITALS: Ht 165.1 cm; Wt 78.6 kg
--- NOTE | 2020-09-28 20:05 | NUR ---
UPON ASSESSMENT, PT SHARED SHE FELT HERSELF PASSING OUT AND FELL YESTERDAY AFTERNOON WHILE WALKING. UNKNOWN LENGTH OF LOC AND UNKNOWN HEAD TRAUMA. ON BLOOD THINNERS. CURRENTLY COMPLAINING OF A HEADACHE, NO VISION CHANGES, NO SIGNS OF STROKE. [facility] AWARE OF PT MEETING TRAUMA LEVEL 2 CRITERIA AND STATES HE WILL PLACE ORDERS
[2020-09-28 20:26] LABS: BASOPHILS % (AUTO) 0.4 % (0-1); EOSINOPHILS # (AUTO) 0.2 X10'3 (0-0.9); EOSINOPHILS % (AUTO) 2.9 % (0-6); LYMPHOCYTES # (AUTO) 1.5 X10'3 (1.1-4.8); LYMPHOCYTES % (AUTO) 17.8 % (21-51); MEAN CORPUSCULAR HEMOGLOBIN 33.4 PG (27.0-31.0); MEAN CORPUSCULAR HGB CONC 34.3 g/dL (33.0-36.5); MEAN CORPUSCULAR VOLUME 97.6 FL (78-98); MEAN PLATELET VOLUME 7.6 FL (7.4-10.4); MONOCYTES # (AUTO) 0.7 X10'3 (0-0.9); MONOCYTES % (AUTO) 8.4 % (2-12); NEUTROPHILS # (AUTO) 5.9 X10'3 (1.8-7.7); NEUTROPHILS % (AUTO) 70.5 % (42-75); PLATELET COUNT 287 X10'3 (140-440); RED CELL DISTRIBUTION WIDTH 12.7 % (11.5-14.5); WHITE BLOOD COUNT 8.4 X10'3 (4.5-11.0)
[2020-09-28] MEDS ORDERED: acetaminophen 325mg tablet PO ONE (20:30)
[2020-09-28] MEDS ORDERED: amLODIPine 5mg tablet PO ONE (20:30)
[2020-09-28 20:31] LABS: PARTIAL THROMBOPLASTIN TIME 43 SECONDS (22-32)
[2020-09-28 20:32] LABS: ALANINE AMINOTRANSFERASE 22 U/L (12-78); ALBUMIN 3.6 G/DL (3.4-5.0); ALBUMIN/GLOBULIN RATIO 1.1 (1.1-1.5); ALKALINE PHOSPHATASE 93 IU/L (46-116); ANION GAP 8 (8-16); ASPARTATE AMINO TRANSFERASE 19 U/L (10-37); BILIRUBIN,TOTAL 0.9 MG/DL (0.1-1.0); BLOOD UREA NITROGEN 17 MG/DL (7-18); CALCIUM 9.5 MG/DL (8.5-10.1); CHLORIDE 99 MMOL/L (99-107); CREATININE 1.31 MG/DL (0.40-0.90); GLUCOSE 123 MG/DL (70-104); POTASSIUM 3.5 MMOL/L (3.5-5.1); SODIUM 135 MMOL/L (135-145); TOTAL CARBON DIOXIDE 28.1 MMOL/L (24-32); TOTAL PROTEIN 6.9 G/DL (6.4-8.2); eGFR 38 ML/MIN
[2020-09-28 20:37] LABS: CREATINE KINASE 62 U/L (26-192); LIPASE 113 U/L (73-393); TROPONIN I < 0.04 NG/ML (0.0-0.05)
[2020-09-28 20:43] LABS: ETHANOL < 0.010 GM/DL (0.0-0.010)
[2020-09-28] MEDS ORDERED: hyDRALAzine 10mg tablet PO STA (21:26)
[2020-09-28] MEDS ORDERED: AMLO5TAB4 PO (21:27)
[2020-09-28] MEDS ORDERED: proCHLORperazine 10mg tablet PO ONE (21:30)
[2020-09-28 21:35] LABS: CLARITY,URINE CLEAR (Clear); COLOR,URINE YELLOW (Yellow); GLUCOSE, URINE NEGATIVE (Neg); KETONES,URINE TRACE mg/dl (Neg); LEUKOCYTE ESTERASE ,URINE NEGATIVE (Neg); NITRITES, URINE NEGATIVE (Neg); OCCULT BLOOD,URINE NEGATIVE (Neg); PH,URINE 7.5 (4.8-8.0); PROTEIN,URINE NEGATIVE (Neg); UA COLLECTION TYPE CLN CATCH MIDSTREAM
[2020-09-28] MEDS ORDERED: normal saline 1000ML IV soln IVB ONE (21:35)
[2020-09-28] MEDS ORDERED: ketorolac tromethamine 15mg/ml inj. IV ONE (21:35)
[2020-09-28 22:43] VITALS: BP 173/74
== END 2020-09-28 22:46 | disposition home or self-care (01) ==
LOC: ER 19:37
DX: I10 Essential (primary) hypertension (principal); R51.9 Headache, unspecified; Z79.899 Other long term (current) drug therapy
CPT/HCPCS: 36415; 70450; 80053; 80320; 81003; 82550; 83690; 84484; 85025; 85610; 85730; 93005; 96361; 96374; 99285; J1885; J7030; Q0164